=== PATIENT | female | born 1985 | race Hispanic/Latino ===

== ENCOUNTER 2019-11-28 09:33 | Outpatient (CLI) | payer OTHER, SELFPAY ==
--- NOTE | ~2019-11-28 | CT_ITS ---
EXAMINATION: CT sinus wo con EXAM DATE: 11/28/2019 09:56 INDICATION: Frontal headaches, pressure. TECHNIQUE: Spiral CT of the sinuses was acquired in the axial plane. Coronal and sagittal reformatte d images were also reviewed. The dose-length product (DLP) for this examination was 344.27 mGy-cm. Iterative reconstruction (ASIR) was used as dose reduction technique. There is no prior study for co mparison. FINDINGS: The sinuses are normally developed. The sinuses are well aerated. The ostiomeatal unit s are patent. There is no sinus wall thickening. There is minimal leftward nasal septal deviation . The mastoid air cells and middle ears are well aerated. External auditory canals are patent. T he orbits and visualized soft tissues are unremarkable. IMPRESSION: Clear sinuses Reviewed, dictated and finalized at location A. IMPRESSION: Clear sinuses
== END 2019-11-28 09:34 | disposition home or self-care (01) ==
LOC: ANHIMG 09:41
PROVIDERS: PCP Nurse Practitioner Family
DX: G43.009 Migraine without aura, not intractable, without status migrainosus (principal); R68.89 Other general symptoms and signs
CPT/HCPCS: 70486

== ENCOUNTER 2019-12-16 15:15 | Emergency (ER) | payer OTHER, SELFPAY ==
[2019-12-16 15:27] VITALS: BP 106/69; PULSE 94; RESP 18; TEMP 36.8; O2SAT 100
--- NOTE | 2019-12-16 15:38 | ED.EAR ---
HPI - Ear Problem General Chief complaint: Ear Stated complaint: Ear Pain Time Seen by Provider: 12/16/19 15:38 Source: patient Mode of arrival: ambulatory Limitations: no limitations History of Present Illness HPI Narrative: Lavinia Garcia is a 34 yo female with no PMH is here today with a new fever blister on left lower lip, left ear pain that extends down onto her left side of her throat, and congestion; she states the ear pain started yesterday and intensified so that she could not sleep; her lip is also painful to touch and started 2 days ago- states first time she has had a fever blister Related Data Home Medications Medication Instructions Recorded Confirmed buspirone 15 mg PO HS 04/06/19 cyclobenzaprine 5 mg PO HS 04/06/19 amitriptyline 12/16/19 montelukast mg 12/16/19 Allergies Allergy/AdvReac Type Severity Reaction Status Date / Time No Known Allergies Allergy Mild Verified 04/06/19 17:23 Review of Systems Review of Systems: Narrative: CONSTITUTIONAL: Denies fever, chills, sweats. EYES: Denies visual changes, redness, discharge. ENT: Denies rhinorrhea, congestion, sore throat, left otalgia. Left enlarged submandibular lymph node CARDIOVASCULAR: Denies chest pain, palpitations, edema. RESPIRATORY: Denies dyspnea, wheezing, cough GASTROINTESTINAL: Denies abdominal pain, nausea, vomiting, diarrhea. GENITOURINARY: Denies dysuria, hematuria, abnormal discharge SKIN: Denies rash or itching. And large blister left lower lip NEUROLOGIC: Denies numbness, or focal weakness. PSYCHIATRIC: Denies anxiety or depression. [facility] Past Medical History Medical History Migraines Surgical History Surgical History No history of previous surgery Family History Family History Mother Diabetes mellitus Father Diabetes mellitus Social History Social History Smoking packs per day: 0.3 Smoking cigarettes per day: 6.0 Smoking status: Current every day smoker Gender identity (if verbalized by the patient): Female Comments At time of signature, I agree with nursing past medical, surgical, social and family history. There is no relevant family history pertinent to the presenting complaint. Exam Narrative: Exam Narrative: GENERAL: This is a well-nourished, well-developed patient, in mild distress. HEAD: normocephalic, atraumatic. EYES: PERRL. Sclera clear/white. Vision is grossly intact. EARS: External ears normal, auditory canals , clear on right, erythematous with tenderness on left with bulging TM, Hearing grossly intact. NOSE: External nose normal without nasal discharge, nares without redness, no rhinorrhea. THROAT: Mucous membranes moist, posterior pharynx mild erythema, very tender left submandibular lymph nodes; left lower lip swelling consistent with herpes simplex NECK: Neck supple, left node tenderness CARDIOVASCULAR: Regular rate and rhythm without murmurs, gallops, or rubs. RESPIRATORY: Clear to auscultation. Breath sounds equal bilaterally. No wheezes, rales, or rhonchi. GASTROINTESTINAL: Abdomen soft, non-tender, SKIN: warm, intact with no suspicious lesions or rash, good texture and turgor. NEURO: awake, alert, and oriented to person, place and time. There were no obvious focal neurologic abnormalities. Steady gait EXTREMITIES: Normal range of motion. BACK: Nontender without deformity Course Course Emergency Course: Started on acyclovir ointment for herpes simplex to left lower lip Polymyxin eardrops with hydrocortisone for left ear pain Amoxicillin for enlargement of left lymph node Discussed handwashing and completion of antibiotics Vital Signs Vital signs: Vital Signs Temperature 98.2 F 12/16/19 15:27 Pulse Rate 94 12/16/19 15:27 Respiratory Rate 18 08/
== END 2019-12-16 15:58 | disposition home or self-care (01) ==
PROVIDERS: Emergency Provider Nurse Practitioner; PCP Nurse Practitioner Family
DX: H66.002 Acute suppurative otitis media without spontaneous rupture of ear drum, left ear (principal); B00.1 Herpesviral vesicular dermatitis; R59.9 Enlarged lymph nodes, unspecified; F17.210 Nicotine dependence, cigarettes, uncomplicated
CPT/HCPCS: 99213; G0463

== ENCOUNTER → 2020-07-21 01:05 | Outpatient (CLI) | payer OTHER, SELFPAY ==
[2020-07-21 19:14] LABS: SARS-CoV-2 RNA PCR Negative
== END ==
PROVIDERS: PCP Nurse Practitioner Family; Visit Provider Obstetrics & Gynecology
DX: Z01.812 Encounter for preprocedural laboratory examination (principal); Z20.822 Contact with and (suspected) exposure to COVID-19
CPT/HCPCS: C9803; U0003; U0005

== ENCOUNTER 2020-07-25 02:44 | Day surgery (SDC) | payer OTHER, SELFPAY ==
[2020-07-19 15:32] VITALS: BMI 28.3
[2020-07-25] VITALS (11 sets, daily range): BP systolic 96–122; BP diastolic 52–70; PULSE 64–81; RESP 16–20; TEMP 36.2–36.8; O2SAT 97–100
--- NOTE | 2020-07-25 06:56 | P.PNAN_ITS ---
Anes - Initial Pre Proc Eval Procedure: Operation Date: 07/25/20 08:30 Proposed Procedures p Laparoscopy With Left Ovarian Cystectomy - Mario Arteaga MD Date/Time: 07/25/20 06:56 Surgeon: Mario Arteaga MD Pre Op Diagnosis: Left Ovarian Cyst Patient Data Age: 35 Gender: F Height: 5 ft 4 in Weight: 75 kg Allergies Allergy/AdvReac Type Severity Reaction Status Date / Time No Known Allergies Allergy Mild Verified 04/06/19 17:23 Home Medications Medication Instructions Recorded Confirmed Type amitriptyline 25 mg PO DAILY 12/16/19 07/19/20 History montelukast 10 mg PO DAILY 12/16/19 07/19/20 History cholecalciferol (vitamin D3) 25 mcg PO DAILY 07/19/20 07/19/20 History fluticasone propionate 50 mcg INTRANASAL DAILY 07/19/20 07/19/20 History sumatriptan succinate 25 mg PO DAILY 07/19/20 07/19/20 History Patient hx anesthesia problems: none Family hx anesthesia problems: none [facility] Past Medical History Medical History (Updated 07/25/20 @ 07:00 by Amaury Coronado MD) Migraines Ovarian cyst Overweight Surgical History Surgical History (Updated 07/25/20 @ 07:00 by Amaury Coronado MD) History of section Family History Family History Mother Diabetes mellitus Father Diabetes mellitus Social History Social History Smoking packs per day: 0.3 Smoking cigarettes per day: 6.0 Years smoked: 14 Smoking pack-years: 4.20 Smoking status: Current every day smoker Tobacco type: cigarettes Substance use: never Living arrangements: with family Gender identity (if verbalized by the patient): Female Sexual Orientation (if Verbalized by the Patient): Straight or Heterosexual Spiritual care concerns: No Anes - Eval Final PreProcedure Day of Procedure 07/25/20 06:56 Patient weight: overweight Heart: regular rate and rhythm Lungs: clear to auscultation Airway: Mallampati scale class II Neurological: alert and oriented Last oral intake: >/= 8 hours ASA classification: II Emergent: no Anesthetic plan: proceed Anesthesia type and monitoring: general ETT and standard monitoring Informed Consent: The patient's anesthetic plan and its attendant risks and benefits were discussed with the patient/family/POA. Questions were solicited and answers provided to the satisfaction of the patient/family/POA.
[2020-07-25] MEDS: ACETAMINOPHEN 500 MG TABLET 1000 MG PO (07:04)
[2020-07-25] MEDS: LACTATED RINGERS 1,000 ML 30 ML IV CONT ×2 (07:10→10:32)
[2020-07-25] MEDS: KETOROLAC 15 MG/ML VIAL (*BKC) IV PUSH (07:16)
--- NOTE | 2020-07-25 08:10 | WPDHPUPDATE1 ---
History and Physical Update Update Date/Time: 07/25/20 08:10 History and Physical has been reviewed, including an updated exam of the patient. There are NO changes in the patient's condition. Risks, benefits, and alternatives have been discussed and questions answered. Patient agrees to proceed with procedure.
--- NOTE | 2020-07-25 10:31 | P.OP_ITS ---
Procedure Note - Detailed Date of procedure: 07/25/20 Pre-op diagnosis: Left Ovarian Cyst Pelvic pain Post-op diagnosis: same (Endometriosis, paratubal cysts) Procedure performed: Laparoscopic Left salpingectomy with removal of large paratubal cyst, radical resection of endometriosis in the posterior cul-de-sac, fulguration of lesions on the right mesosalpinx Description of procedure: The patient was taken the operating room. She was prepped and draped in the dorsal lithotomy position after induction of general anesthesia. A 5 mm left upper quadrant incision was made in the abdominal skin with a scalpel. A 5 mm trocar was inserted the intra-abdominal cavity under direct visualization of the scope. A 5 mm left lower quadrant incision was made with the scalp on the abdominal skin and a 5 mm trocar was inserted the intra- abdominal cavity under direct visualization of the scope. A 5 mm infraumbilical incision was made with scalpel and a 5 mm trocar was inserted into the intra- abdominal cavity under direct visualization of the scope. Left paratubal cystectomy and salpingectomy were performed. The using sharp and blunt dissection along with cautery the paratubal cyst was dissected off the pelvic sidewall. After was free of pelvic sidewall the fallopian tube could be removed. There are multiple cysts along the fallopian tube. The mesosalpinx was cauterized and transected using cautery and scissors. This was performed all around the tube to the area of the uterine cornua on the left. The fallopian tube was then cauterized and transected in that area. The peritoneum of the posterior cul-de-sac was removed bilaterally. From the uterine arteries to the pelvic brim and from the fallopian tubes to the rectum the peritoneum was removed. This was done with sharp and blunt dissection along with cautery. The ureters were dissected out, ureteral lysis was performed from the pelvic brim to the uterine arteries. These were intact at the end of the case. Peritoneum was taken down in 2 segments, the right and the left. These these were taken at the left lower quadrant trocar site. Some paratubal cysts were cauterized around the right tube. Interceed was placed over the bilateral hemipelvises of the posterior cul-de-sac. This was done after thorough irrigation and cauterization of some fine bleeding vessels. The pneumoperitoneum was reduced. The trocars were removed. The patient was taken recovery room stable condition. Sponge lap and needle counts were correct x2. Anesthesia: GETA Surgeon: Mario Arteaga MD Estimated blood loss (mL): 50 Drains: No Packing: No Pathology: yes Complications: No immediate complications Condition: stable Disposition: PACU Findings: Endometriosis in the posterior cul-de-sac bilaterally in the area of the parametrium and adnexa, there was a large paratubal cyst involving the left fallopian tube, there were multiple small paratubal cysts throughout the left fallopian tube. There were multiple small paratubal cysts on the mesosalpinx of the right ovary.
[2020-07-25] MEDS: fentaNYL CITRATE INJ (*CRX) 100 MCG/2 ML VIAL 25 MCG IV PUSH ×2 (10:55→10:58)
[2020-07-25] MEDS: ONDANSETRON INJ 4 MG/2 ML VIAL IV PUSH (11:31)
[2020-07-25] MEDS: diphenhydrAMINE HCl INJ 50 MG/ML VIAL 25 MG IV PUSH (12:22)
== END 2020-07-25 13:04 | disposition home or self-care (01) ==
PROVIDERS: PCP Nurse Practitioner Family; Visit Provider Obstetrics & Gynecology
PROC: (CPT 49320; principal; 2020-07-25 08:30)
DX: N83.292 Other ovarian cyst, left side (principal); N83.8 Other noninflammatory disorders of ovary, fallopian tube and broad ligament; K66.8 Other specified disorders of peritoneum; N80.3 Endometriosis of pelvic peritoneum; R10.2 Pelvic and perineal pain; N73.6 Female pelvic peritoneal adhesions (postinfective); F17.210 Nicotine dependence, cigarettes, uncomplicated
CPT/HCPCS: 58662; 58661; 88305; A9270; J0330; J1100; J1200; J1885; J2250; J2405; J2704; J2710; J3010; J7030; J7120

== ENCOUNTER 2021-06-28 09:38 | Emergency (ER) | payer OTHER, SELFPAY ==
[2021-06-28 09:51] VITALS: BP 120/69; PULSE 104; RESP 16; O2SAT 99
--- NOTE | 2021-06-28 10:25 | ED.URI ---
HPI - URI/Sore Throat General Chief Complaint: Upper Respiratory Infection Stated Complaint: Cough Time Seen by Provider: 06/28/21 10:25 Source: patient Mode of arrival: ambulatory Limitations: no limitations History of Present Illness HPI Narrative: Lavinia Garcia is a 36 yo female who comes to express care with a cough x 2 weeks - has some rib and chest wall discomfort. Tried Mucinex and various other [id number] medications have not helped; she states she is unable to sleep at night due to coughing Related Data Home Medications Medication Instructions Recorded Confirmed amitriptyline 25 mg PO DAILY 12/16/19 07/25/20 montelukast 10 mg PO DAILY 12/16/19 07/25/20 fluticasone propionate 50 mcg INTRANASAL DAILY 07/19/20 07/25/20 sumatriptan succinate 25 mg PO DAILY 07/19/20 07/25/20 Allergies Allergy/AdvReac Type Severity Reaction Status Date / Time No Known Allergies Allergy Mild Verified 07/25/20 07:28 Review of Systems Review of Systems: CONSTITUTIONAL: Denies fever, chills, sweats. EYES: Denies visual changes, redness, discharge. ENT: Denies rhinorrhea, congestion, sore throat, otalgia. CARDIOVASCULAR: Denies chest pain, palpitations, edema. RESPIRATORY: Denies dyspnea, wheezing, cough GASTROINTESTINAL: Denies abdominal pain, nausea, vomiting, diarrhea. GENITOURINARY: Denies dysuria, hematuria, abnormal discharge SKIN: Denies rash or itching. NEUROLOGIC: Denies numbness, or focal weakness. PSYCHIATRIC: Denies anxiety or depression. [facility] Past Medical History Medical History COVID-19 Migraines Ovarian cyst Overweight Surgical History Surgical History History of section Family History Family History Mother Diabetes mellitus Father Diabetes mellitus Social History Social History Smoking packs per day: 0.3 Smoking cigarettes per day: 6.0 Years smoked: 14 Smoking pack-years: 4.20 Smoking status: Current every day smoker Tobacco type: cigarettes Substance use: never Gender identity (if verbalized by the patient): Female Sexual Orientation (if Verbalized by the Patient): Straight or Heterosexual Spiritual care concerns: No Comments At time of signature, I agree with nursing past medical, surgical, social and family history. There is no relevant family history pertinent to the presenting complaint. Exam Narrative: GENERAL: This is a well-nourished, well-developed patient, in mild distress. HEAD: normocephalic, atraumatic. EYES: . Sclera clear/white. Vision is grossly intact. EARS: External ears normal, auditory canals clear and without drainage, TMs normal without perforation. Hearing grossly intact. NOSE: External nose normal without nasal discharge, nares without redness, has rhinorrhea. THROAT: Mucous membranes moist, posterior pharynx erythema NECK: Neck supple, non-tender CARDIOVASCULAR: Tachycardic rate and rhythm without murmurs, gallops, or rubs. RESPIRATORY: Diminished to auscultation. Breath sounds equal bilaterally. No wheezes, rales, or rhonchi. GASTROINTESTINAL: Abdomen soft, non-tender, SKIN: warm, intact with no suspicious lesions or rash, good texture and turgor. NEURO: awake, alert, and oriented to person, place and time. There were no obvious focal neurologic abnormalities. Steady gait EXTREMITIES: Normal range of motion. BACK: Nontender without deformity Course Course Emergency Course: Patient here with cough x 2 weeks that is not responsive to otc drugs Traet for bronchitis with prednisone, zithromax, tessalon perles Level of Care: Express Care Visit Vital Signs Vital signs: Vital Signs Pulse Rate 104 H 06/28/21 09:51 Respiratory Rate 16 06/28/21 09:51 Blood Pressure 120/69 06/28/21 09:51 Pulse Oximetry 99
== END 2021-06-28 10:38 | disposition home or self-care (01) ==
PROVIDERS: Emergency Provider Nurse Practitioner; PCP Nurse Practitioner Family
DX: J40 Bronchitis, not specified as acute or chronic (principal); F17.210 Nicotine dependence, cigarettes, uncomplicated; Z86.16 Personal history of COVID-19
CPT/HCPCS: 99213; G0463

== ENCOUNTER 2021-12-19 12:39 | Outpatient (CLI) | payer OTHER, SELFPAY ==
--- NOTE | ~2021-12-19 | US_ITS ---
EXAMINATION: US venous doppler [facility] DATE: 12/19/2021 13:24 INDICATION: Left lower limb pain, history of deep venous thrombosis TECHNIQUE: Guillen scale images without and with compression and Doppler images of the left lower extrem ity veins were obtained. COMPARISON: None FINDINGS: There is a partial filling defect of the left common femoral vein. The left profunda femora l vein, femoral vein, popliteal vein, peroneal trunk, posterior tibial veins, and greater saphenous v ein are patent. IMPRESSION: 1. 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 Reviewed, dictated and finalized at location A. IMPRESSION: 1. 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
== END 2021-12-19 12:40 | disposition home or self-care (01) ==
PROVIDERS: PCP Nurse Practitioner Family; Visit Provider Nurse Practitioner Family
DX: O09.893 Supervision of other high risk pregnancies, third trimester (principal); M79.605 Pain in left leg; Z86.718 Personal history of other venous thrombosis and embolism; I82.412 Acute embolism and thrombosis of left femoral vein
CPT/HCPCS: 93971

== ENCOUNTER 2022-09-17 00:28 | Day surgery (SDC) | payer OTHER, SELFPAY ==
[2022-09-10 12:02] VITALS: BMI 31.0
--- NOTE | 2022-09-10 12:07 | PC.NURSE ---
Report to the Outpatient Waiting Room, entrance under the green pavilion located off [facility], at time 0800 on date 09/17/22. Planned Procedure Time: 1000. Time changes happen often and if your time is changed the preop area will call you the afternoon before. - You and your visitor will be asked to self-screen and do not enter if you have any COVID symptoms. - A mask is optional within the hospital at this time. Patients may have clear liquids (water, carbonated beverages, clear teas, apple juice) until 3 hours prior to surgery with a maximum of 20 ounces. - No food from midnight until time of surgery Take the following medications with a SIP of water the morning of surgery: NONE DO NOT STOP ANY OF YOUR OTHER PRESCRIPTION MEDICATIONS PRIOR TO SURGERY EXCEPT THE FOLLOWING Medications to discontinue per physician: VITAMINS/SUPPLEMENTS Date to take last dose: 09/13/[address] BRODERICK REGARDING ELIQUIS Please no make-up, nail setswana, hairspray, perfume, deodorant, or body powder the day of surgery. No jewelry (including any body piercings) or valuables the day of surgery, leave them at home. Please take a shower or bath the night before, or the morning of, surgery with an antibacterial soap. Wear comfortable, loose fitting clothing. - Jewelry must be removed prior to entering the operating room. Rings and piercings that are not removed may be cut off. - The hospital will not accept responsibility for valuables. - Please leave all valuables, including medications, at home the day of surgery. If you are going home after surgery, a licensed putaway driver must drive you home. - NO public transportation without another adult if you receive anesthesia. - We recommend that an adult stay with you for 24 hours following discharge. - We also recommend that you do not drive, make important decision, drink alcoholic beverages, or take any drugs that were not prescribed by your health care provider for at least 24 hours after your discharge time. Follow any additional instructions given to you from your surgeon. If you or anyone in your household have experienced Covid symptoms in the past week, please notify your surgeon or the nurse liaison at the phone number below for possible testing. Telephone instructions given to PT - TRISTA PAN and asked if any additional questions and then verbalized understanding. Patient advised to call surgeon office or pre surgery nurse liaison [phone] if any additional questions.
--- NOTE | 2022-09-16 13:51 | P.PNAN_ITS ---
Anes - Initial Pre Proc Eval Procedure: Operation Date: 09/17/22 10:45 Proposed Procedures p Hysteroscopy, Indigo Endometrial Ablation - Mario Arteaga MD Date/Time: 09/16/22 13:51 Surgeon: Mario Arteaga MD Pre Op Diagnosis: menorrhagia Patient Data Age: 37 Gender: F Height: 1.6 m Weight: 79.4 kg Allergies Allergy/AdvReac Type Severity Reaction Status Date / Time No Known Allergies Allergy Mild Verified 09/10/22 11:58 Home Medications Medication Instructions Recorded Confirmed Type amitriptyline 25 mg tablet 25 mg PO HS 12/16/19 09/10/22 History montelukast 10 mg tablet 10 mg PO HS 12/16/19 09/10/22 History fluticasone propionate 50 50 mcg intranasal DAILY 07/19/20 09/10/22 History mcg/actuation nasal spray,suspension sumatriptan succinate 25 mg tablet 25 mg PO DAILY 07/19/20 09/10/22 History apixaban 5 mg tablet (Eliquis) 5 mg PO BID 09/10/22 09/17/22 History cholecalciferol (vitamin D3) 125 125 mcg PO DAILY 09/10/22 09/17/22 History mcg (5,000 unit) tablet (Vitamin D3) folic acid 1 mg tablet 1 mg PO DAILY 09/10/22 09/17/22 History magnesium 200 mg tablet 200 mg PO HS 09/10/22 09/17/22 History methocarbamol 750 mg tablet 750 mg PO TID NECK PAIN 09/10/22 09/10/22 History Patient hx anesthesia problems: none Family hx anesthesia problems: none Results Review: All pre-operative results and documents have been reviewed as part of the pre- operative evaluation. COUNT INCLUDES THE [facility] Past Medical History Medical History Anticoagulated COVID-19 DVT (deep venous thrombosis) Migraines Obesity Ovarian cyst Overweight Smoker Surgical History Surgical History History of section Family History Family History Mother Diabetes mellitus Father Diabetes mellitus Social History Social History Smoking packs per day: 0.3 Smoking cigarettes per day: 6.0 Years smoked: 14 Smoking pack-years: 4.20 Smoking status: Current every day smoker Tobacco type: cigarettes Alcohol intake: never Substance use: never Substance use type: does not use Living arrangements: with family Additional living arrangements comments: CHILDREN Gender identity (if verbalized by the patient): Female Sexual Orientation (if Verbalized by the Patient): Straight or Heterosexual Spiritual care concerns: No Anes - Eval Final PreProcedure Day of Procedure 09/16/22 13:51 Patient weight: obese Heart: regular rate and rhythm Lungs: clear to auscultation Airway: Mallampati scale class II Neurological: alert and oriented Last oral intake: >/= 8 hours ASA classification: III Emergent: no Anesthetic plan: proceed Anesthesia type and monitoring: general GIVS and LMA and standard monitoring Results Review: All pre-operative results and documents have been reviewed as part of the pre- operative evaluation. Informed Consent: The patient's anesthetic plan and its attendant risks and benefits were discussed with the patient/family/POA. Questions were solicited and answers provided to the satisfaction of the patient/family/POA.
[2022-09-17 08:35] VITALS: BMI 29.9
[2022-09-17 08:40] VITALS: BP 107/66; PULSE 94; RESP 14; TEMP 36.4; O2SAT 100
--- NOTE | 2022-09-17 08:40 | SUR.PREOP ---
0840- Notified patient procedure start time will be delayed. Patient and spouse Morgan verbalized understanding.
[2022-09-17] MEDS: LACTATED RINGERS 1,000 ML 30 ML IV CONT (08:55)
--- NOTE | 2022-09-17 10:00 | WPDHPUPDATE1 ---
History and Physical Update Update Date/Time: 09/17/22 10:00 History and Physical has been reviewed, including an updated exam of the patient. There are NO changes in the patient's condition. Risks, benefits, and alternatives have been discussed and questions answered. Patient agrees to proceed with procedure.
--- NOTE | 2022-09-17 10:02 | PM.IMHP ---
H&P: HPI History of Present Illness Date/Time: 09/17/22 10:02 Chief Complaint: Heavy vaginal Narrative: this patient is a 37-year-old female with severe menorrhagia. We have agreed to perform endometrial ablation with hysteroscopy. She understands that surgery has risk of that injuries may occur. Injuries may result in hospitalization, or surgery and severe illness. She understands risk of hemorrhage infection. She understands risks we proceed. She denies any chest pain shortness of breath. She denies any nausea, vomiting, fever, chills. Review of Systems Review of Systems: All systems reviewed & are unremarkable except as noted in HPI and below Constitutional: Constitutional: Denies chills, Denies fatigue, Denies fever(s) and Denies weakness Eyes: Eyes: Denies blurry vision, Denies change in vision, Denies loss of peripheral vision, Denies loss of vision, Denies other visual disturbances and Denies eye pain ENT: Denies vertigo, Denies dizziness, Denies hearing loss, Denies mouth pain, Denies nasal obstruction, Denies neck mass and Denies neck pain Cardiovascular: Cardiovascular: Denies chest pain, Denies diaphoresis, Denies syncope, Denies leg edema and Denies dyspnea Respiratory: Respiratory: Denies chest congestion, Denies cough, Denies hemoptysis, Denies dyspnea and Denies wheezing Gastrointestinal: Gastrointestinal: Denies abdominal pain, Denies constipation, Denies diarrhea, Denies nausea and Denies vomiting Genitourinary: Genitourinary: Denies hematuria, Denies change in libido, Denies nocturia, Denies genital lesions, Denies flank pain and Denies urinary urgency Musculoskeletal: Musculoskeletal: Denies abnormal gait, Denies back pain, Denies myalgias, Denies arthralgias, Denies joint swelling, Denies muscle weakness and Denies neck pain Integumentary/Breasts: Skin/Breast: Denies swelling, Denies breast pain, Denies breast mass, Denies dry skin, Denies nipple discharge, Denies unusual bruising and Denies jaundice Neurologic: Denies Neuro-related abnormal movements, Denies Abnormal speech present, Denies abnormal gait, Denies behavioral changes, Denies confusion, Denies vertigo, Denies dizziness, Denies syncope, Denies loss of vision, Denies memory loss, Denies convulsions and Denies weakness Psychiatric: Psychiatric: Denies abnormal sleep pattern, Denies behavioral changes, Denies change in libido, Denies confusion, Denies depression, Denies anhedonia and Denies memory loss Endocrine: Endocrine: Reports no additional endocrine complaints, Denies change in libido and Denies fatigue Hematologic/Lymphatic: Hematologic/Lymphatic: Reports no additional hematologic/lymphatic complaints Allergic/Immunologic: Allergic/Immunologic: Reports no additional allergic/immunologic complaints and Denies wheezing PMFSH Past Medical History Medical History Anticoagulated COVID-19 DVT (deep venous thrombosis) Migraines Obesity Ovarian cyst Overweight Smoker Surgical History Surgical History History of section Family History Family History Mother Diabetes mellitus Father Diabetes mellitus Social History Social History Smoking packs per day: 0.3 Smoking cigarettes per day: 6.0 Years smoked: 14 Smoking pack-years: 4.20 Smoking status: Current every day smoker Tobacco type: cigarettes Alcohol intake: never Substance use: never Substance use type: does not use Living arrangements: with family Additional living arrangements comments: CHILDREN Gender identity (if verbalized by the patient): Female Sexual Orientation (if Verbalized by the Patient): Straight or Heterosexual Spiritual care concerns: No Meds Home Medications and Allergies Home Medications Medication Instructions Recorded Confirmed Type dat
[2022-09-17] MEDS: ACETAMINOPHEN 500 MG TABLET 1000 MG PO (10:35)
[2022-09-17] MEDS: LIDOCAINE HCL 1% LOCAL INJ 20 ML VIAL 10 ML INFILTRATE (11:51)
[2022-09-17 12:09] VITALS: BP 101/52; PULSE 80; RESP 16; O2SAT 98
--- NOTE | 2022-09-17 12:19 | W.PM.PROC2 ---
Procedure Note - Detailed Date of Procedure 09/17/22 Pre-op Diagnosis menorrhagia Post-op Diagnosis Same Procedure Performed endometrial ablation with hysteroscopy d&c Surgeon Mario Arteaga MD Anesthesia MAC Indications Severe menorrhagia Findings Normal vulva vagina and cervix. Normal endometrium. Description of Procedure The patient was taken to the operating room. She was prepped and draped in the dorsal lithotomy position after induction of mac anesthesia. A speculum was placed in the vagina. Cervix grasped with a tenaculum. The cervix was dilated to about 1 cm. The hysteroscope was inserted. The above findings were noted. Endometrial curettage was performed with a medium-size curette. All surfaces of the endometrium were affected by the curettage. The specimens were collected and sent to pathology. Measurements were taken of the uterus and cervix. The uterine length was then entered into the hand piece of the Indigo device. The device was inserted into the intrauterine cavity. The array of the device was expanded. The balloon cuff was inflated. A good seal was achieved. The energy and safety cycles were initiated and completed. The array was collapsed and the instrument was withdrawn after deflating the balloon cuff. Hysteroscope was reinserted. Above findings were noted. The hysteroscope was removed. The patient tolerated the procedure well. The speculum and tenaculum were removed. She was taken to recovery in stable condition. Sponge lap and needle counts were correct x2. Estimated Blood Loss 15 Pathology Yes Complications No immediate complications Condition Stable Disposition Same day
[2022-09-17 12:40] VITALS: BP 101/67; PULSE 57; RESP 12; O2SAT 99
[2022-09-17] MEDS: fentaNYL CITRATE INJ (*CRX) 100 MCG/2 ML VIAL 25 MCG IV PUSH ×2 (12:41→12:45)
[2022-09-17] MEDS: oxyCODONE HCL (*CRX) 5 MG TAB IR PO (13:13)
[2022-09-17 13:20] VITALS: BP 101/75; PULSE 85; RESP 12
== END 2022-09-17 13:37 | disposition home or self-care (01) ==
PROVIDERS: PCP Nurse Practitioner Family; Visit Provider Obstetrics & Gynecology
PROC: 0U5B8ZZ Destruction of Endometrium, Via Natural or Artificial Opening Endoscopic (ICD-10-PCS; CPT 58563; principal; 2022-09-17 10:45)
DX: N92.0 Excessive and frequent menstruation with regular cycle (principal); F17.210 Nicotine dependence, cigarettes, uncomplicated; Z86.718 Personal history of other venous thrombosis and embolism; Z79.01 Long term (current) use of anticoagulants
CPT/HCPCS: 58563; 88305; A9270; J2250; J2405; J2704; J3010; J7120

== ENCOUNTER 2024-02-18 10:39 | Emergency (ER) | payer OTHER, SELFPAY ==
[2024-02-18 10:47] VITALS: BP 103/61; PULSE 79; RESP 19; TEMP 37; O2SAT 100
--- NOTE | 2024-02-18 10:47 | ED.EAR ---
HPI - Ear Problem General Chief complaint: Ear Stated complaint: Left Ear Irritation Time Seen by Provider: 02/18/24 10:47 Source: patient Mode of arrival: ambulatory Limitations: no limitations History of Present Illness HPI Narrative: 39-year-old female presents with complaint of left ear pain since last night. States she felt warm but no fever. No other symptoms today. All systems reviewed and negative except as noted above. Related Data Home Medications Medication Instructions Recorded Confirmed amitriptyline 25 mg tablet 25 mg PO HS 12/16/19 09/10/22 montelukast 10 mg tablet 10 mg PO HS 12/16/19 09/10/22 fluticasone propionate 50 50 mcg intranasal DAILY 07/19/20 09/10/22 mcg/actuation nasal spray,suspension sumatriptan succinate 25 mg tablet 25 mg PO DAILY 07/19/20 09/10/22 apixaban 5 mg tablet (Eliquis) 5 mg PO BID 09/10/22 09/17/22 cholecalciferol (vitamin D3) 125 125 mcg PO DAILY 09/10/22 09/17/22 mcg (5,000 unit) tablet (Vitamin D3) folic acid 1 mg tablet 1 mg PO DAILY 09/10/22 09/17/22 magnesium 200 mg tablet 200 mg PO HS 09/10/22 09/17/22 methocarbamol 750 mg tablet 750 mg PO TID NECK PAIN 09/10/22 09/10/22 Allergies Allergy/AdvReac Type Severity Reaction Status Date / Time No Known Allergies Allergy Mild Verified 02/18/24 10:49 Review of Systems Review of Systems: CONSTITUTIONAL: Denies fever, chills, or sweats. EYES: Denies visual changes, redness, or discharge. ENT: Denies rhinorrhea, congestion, sore throat . Reports left ear pain. CARDIOVASCULAR: Denies chest pain, palpitations, or edema. RESPIRATORY: Denies cough or dyspnea. GASTROINTESTINAL: Denies abdominal pain, nausea, vomiting, or diarrhea. GENITOURINARY: Denies dysuria or hematuria. SKIN: Denies rash or itching. MUSCULOSKELETAL: Denies back pain, joint pain, or myalgia. NEUROLOGIC: Denies headache, numbness, or weakness. PSYCHIATRIC: Denies anxiety or depression. All other systems reviewed are negative, except as documented in HPI. [facility] Past Medical History Medical History Anticoagulated COVID-19 DVT (deep venous thrombosis) Migraines Obesity Ovarian cyst Overweight Smoker Surgical History Surgical History History of section Family History Family History Mother Diabetes mellitus Father Diabetes mellitus Social History Social History Smoking packs per day: 0.3 Smoking cigarettes per day: 6.0 Years smoked: 14 Smoking pack-years: 4.20 Smoking status: Current every day smoker Tobacco type: cigarettes Alcohol intake: never Substance use: never Substance use type: does not use Living arrangements: with family Additional living arrangements comments: CHILDREN Gender identity (if verbalized by the patient): Female Sexual Orientation (if Verbalized by the Patient): Straight or Heterosexual Spiritual care concerns: No Comments At time of signature, agree with nursing past medical, surgical, social and family history. There is no relevant family history pertinent to the presenting complaint. Exam Narrative: GENERAL: This is a well-nourished, well-developed patient, in no apparent distress. HEAD: normocephalic, atraumatic. EYES: PERRL. Sclera clear/white. Vision is grossly intact. EARS: External ears normal, Right ear canal normal, left ear canal is erythematous and swollen without drainage bilaterally, TMs normal without perforation. Hearing grossly intact. NOSE: External nose normal NECK: Neck supple, non-tender without lymphadenopathy, masses or thyromegaly. CARDIOVASCULAR: Regular rate and rhythm without murmurs, gallops, or rubs. RESPIRATORY: Clear to auscultation. Breath sounds equal bilaterally. No wheezes, rales, or rhonchi. SKIN: warm, Dry, intact with no suspicious lesions or
== END 2024-02-18 11:00 | disposition home or self-care (01) ==
PROVIDERS: Emergency Provider Nurse Practitioner Family; PCP Nurse Practitioner Family
DX: H60.502 Unspecified acute noninfective otitis externa, left ear (principal); F17.210 Nicotine dependence, cigarettes, uncomplicated; E66.9 Obesity, unspecified; Z68.29 Body mass index [BMI] 29.0-29.9, adult; Z86.718 Personal history of other venous thrombosis and embolism; Z86.16 Personal history of COVID-19; Z79.01 Long term (current) use of anticoagulants
CPT/HCPCS: 99213; G0463